=== PATIENT | female | born 1975 | race Caucasian/White ===

== ENCOUNTER 2023-08-23 03:54 | Emergency (ER) | payer OTHER ==
[~2023-08-23] VITALS: Ht 162.6 cm; Wt 59.0 kg
[2023-08-23] MEDS ORDERED: ALBUTEROL FS 2.5 MG/3 ML VIAL.NEB ONE (04:07)
[2023-08-23] MEDS ORDERED: IPRATROPIUM NEB FS 0.5 MG/2.5 ML AMPUL.NEB ONE (04:07)
[2023-08-23 04:08] VITALS: O2SAT 95
[2023-08-23 04:23] VITALS: O2SAT 99
[2023-08-23 04:24] VITALS: O2SAT 99
[2023-08-23] MEDS ORDERED: ALBUTEROL FS 2.5 MG/3 ML VIAL.NEB NEB ONE (04:30)
[2023-08-23] MEDS ORDERED: methylPREDNISolone SOD SUCC 125 MG/2ML VIAL IV ONE (04:30)
[2023-08-23] MEDS ORDERED: IV NS 0.9% 1,000 ML IV ONE (04:30)
[2023-08-23] MEDS ORDERED: Magnesium 1GM/D5W 100ML PREMIX 200 ML IV ONE (04:30)
[2023-08-23] MEDS ORDERED: IPRATROPIUM NEB FS 0.5 MG/2.5 ML AMPUL.NEB NEB ONE (04:30)
[2023-08-23] MEDS ORDERED: Magnesium 1GM/D5W 100ML PREMIX 100 ML IV ONE (04:36)
[2023-08-23] MEDS ORDERED: methylPREDNISolone SOD SUCC 125 MG/2ML VIAL ONE (04:36)
[2023-08-23 04:39] VITALS: O2SAT 99
[2023-08-23] MEDS ORDERED: PRED50TA PO (05:41)
[2023-08-23] MEDS ORDERED: ALBU8.5H8 INH (05:41)
[2023-08-23 06:03] VITALS: BP 145/99; TEMP 98.6; O2SAT 99
[2023-08-23 07:56] LABS: SITE, VBG Other; VBG BASE EXCESS -4.5 mmol/L (-3-3); VBG COHb 0.7 %; VBG MetHb 0.2 %; VBG OXYGEN SATURATION 82.7 %; VBG PCO2 35.8 mmHg (40-52); VBG PH 7.368 (7.31-7.41); VBG PO2 49.2 mmHg (30-50); VENT MODE, VBG HHN 6LPM
== END 2023-08-23 06:03 | disposition home or self-care (01) ==
LOC: ER 03:57
DX: J45.901 Unspecified asthma with (acute) exacerbation (principal); Z98.890 Other specified postprocedural states; Z88.1 Allergy status to other antibiotic agents
CPT/HCPCS: 99291; 96365; 96375; 82803 ×2; 94799; 94640 ×2; J2930; J7030; A4223; J3475

== ENCOUNTER 2024-10-25 21:01 | Emergency (ER) | payer BC ==
[~2024-10-25] VITALS: Ht 162.6 cm; Wt 59.0 kg
[~2024-10-25 21:01] MED LIST: ALBU8.5H8 INH; PRED50TA PO
[2024-10-25] MEDS ORDERED: KETOROLAC TROMETHAMINE INJ 30 MG/ML VIAL ONE (22:55)
[2024-10-25] MEDS: KETOROLAC TROMETHAMINE INJ 30 MG/ML VIAL IM ONE (23:00)
[2024-10-25] MEDS ORDERED: IBUP-1957 PO (23:29)
[2024-10-26 01:00] VITALS: BP 112/70; TEMP 98.3; O2SAT 98
== END 2024-10-26 01:00 | disposition home or self-care (01) ==
LOC: ER 21:02
DX: R51.9 Headache, unspecified (principal); M25.512 Pain in left shoulder; J45.909 Unspecified asthma, uncomplicated; Z79.52 Long term (current) use of systemic steroids; V43.52XA Car driver injured in collision with other type car in traffic accident, initial encounter; Y93.89 Activity, other specified; Y92.89 Other specified places as the place of occurrence of the external cause; Y99.8 Other external cause status
CPT/HCPCS: 99285; 72125; 96372; 73030; 70450; J1885